=== PATIENT | male | born 1990 | race Caucasian/White ===

== ENCOUNTER → 2024-05-17 | Outpatient (CLI) | payer BC ==
[~2024-05-17] MED LIST: LIDOCAINE 1% MDV 20ML VIAL As Ordered ONE
[2024-05-17 14:10] VITALS: TEMP 98
[2024-05-17 14:25] VITALS: BP 147/78; O2SAT 97
== END ==
LOC: M IRPRO 13:36
PROVIDERS: ATTEND Surgery
DX: D48.5 Neoplasm of uncertain behavior of skin (principal); R22.41 Localized swelling, mass and lump, right lower limb